=== PATIENT | male | born 1995 | race African-American/Black ===

== ENCOUNTER 2021-09-02 01:59 | Emergency (ER) | payer SELFPAY ==
[~2021-09-02] VITALS: Ht 172.7 cm; Wt 66.0 kg
[2021-09-02 02:01] VITALS: BP 135/82
[2021-09-02] MEDS ORDERED: IBUPROFEN 600MG TABLET PO ONE (02:30)
[2021-09-02] MEDS ORDERED: IBUP-2029 MT (02:31)
== END 2021-09-02 05:22 | disposition home or self-care (01) ==
LOC: ER 01:59
DX: M79.18 Myalgia, other site (principal); Z59.00 Homelessness unspecified
CPT/HCPCS: 99283